=== PATIENT | male | born 1990 | race American Indian/Alaskan Native ===

== ENCOUNTER 2017-04-20 13:00 | Emergency (ER) | payer SELFPAY ==
[2017-04-20 13:17] VITALS: BP 109/74
[2017-04-20] MEDS ORDERED: TYLENOL PO ONE (13:59)
--- NOTE | 2017-04-20 13:59 | Emergency Department Report ---
ED Headache HPI - General Chief Complaint: Headache Stated Complaint: HEADACHE Time Seen by Provider: 04/20/17 13:56 - History of Present Illness Initial Comments: 26-year-old male past medical history asthma presents with complaint of right sided headache persistent and intermittent for one week. Denies fever chills nausea vomiting photophobia phonophobia. Denies any head trauma. No fever or chills reported. Patient is fully lucid awake alert and oriented 3. No alcohol or drug use or smoking reported. Patient is able to without assistance. Denies blurry vision dizziness and nausea. States it is right- sided throbbing and occurs 2-3 times per day slightly worse in the morning. Timing/Duration: 1 week Quality: moderate, achy, stabbing Head Injury Location: temporal Associated Symptoms: denies symptoms Allergies/Adverse Reactions: Allergies No Known Allergies Allergy (Unverified 06/08/15 10:09) Home Medications: Ambulatory Orders hydrOXYzine HCL [Atarax] 25 mg PO Q6HR PRN #20 tablet 06/08/15 predniSONE [Deltasone] 50 mg PO QDAY #5 tab 06/08/15 Ibuprofen [Motrin] 800 mg PO Q8HR PRN #25 tablet 04/20/17 Metoclopramide HCl [Reglan TAB] 5 mg PO TID PRN #9 tablet 04/20/17 ED Review of Systems ROS: Stated complaint: HEADACHE Other details as noted in HPI Constitutional: denies: chills, fever Eyes: denies: eye pain, eye discharge, vision change ENT: denies: ear pain, throat pain Respiratory: denies: cough, shortness of breath, wheezing Cardiovascular: denies: chest pain, palpitations Endocrine: no symptoms reported Gastrointestinal: denies: abdominal pain, nausea, diarrhea Genitourinary: denies: urgency, dysuria Musculoskeletal: denies: back pain, joint swelling, arthralgia Skin: denies: rash, lesions Neurological: headache. denies: weakness, paresthesias Psychiatric: denies: anxiety, depression Hematological/Lymphatic: denies: easy bleeding, easy bruising ED Past Medical Hx - Past Medical History Previous Medical History?: No - Surgical History Past Surgical History?: No - Social History Smoking Status: Current Every Day Smoker Substance Use Type: Alcohol, Marijuana - Medications Home Medications: Home Medications Medication Instructions Recorded Confirmed Last Taken Type hydrOXYzine HCL [Atarax] 25 mg PO Q6HR PRN #20 tablet 06/08/15 Unknown Rx predniSONE [Deltasone] 50 mg PO QDAY #5 tab 06/08/15 Unknown Rx Ibuprofen [Motrin] 800 mg PO Q8HR PRN #25 tablet 04/20/17 Unknown Rx Metoclopramide HCl [Reglan TAB] 5 mg PO TID PRN #9 tablet 04/20/17 Unknown Rx ED Physical Exam - General Limitations: No Limitations General appearance: alert, in no apparent distress - Head Head exam: Present: atraumatic, normocephalic - Eye Eye exam: Present: normal appearance, PERRL, EOMI - ENT ENT exam: Present: mucous membranes moist - Neck Neck exam: Present: normal inspection - Respiratory Respiratory exam: Present: normal lung sounds bilaterally. Absent: respiratory distress - Cardiovascular Cardiovascular Exam: Present: regular rate, normal rhythm. Absent: systolic murmur, diastolic murmur, rubs, gallop - GI/Abdominal GI/Abdominal exam: Present: soft, normal bowel sounds - Rectal Rectal exam: Present: deferred - Extremities Exam Extremities exam: Present: normal inspection - Back Exam Back exam: Present: normal inspection - Neurological Exam Neurological exam: Present: alert, oriented X3, CN II-XII intact, normal gait - Expanded Neurological Exam Expanded Patient oriented to: Present: person, place, time Cranial nerves: EOM's Intact: Normal, Facial Sensation: Normal Cerebellar function: Finger to Nose: Normal, Heel to Rodriguez: Normal, Romberg: Normal Sensory exam: Upper Extremity Light Touch: Normal, Lower Extremity Light Touch: Normal Motor strength exam: RUE: 5, LUE: 5, RLE: 5, LLE: 5 Best Eye Response (Mckenna): (4) open spontaneously Best Motor Response (Mckenna): (6) obeys commands Best Verbal Response ([place]): (5) oriented [place] Total: 15 - Psychiatric Psychiatric exam: Present: normal affect, normal mood - Skin Skin exam: Present: warm, dry, intact, normal color. Absent: rash ED Course Vital Signs 04/20/17 04/20/17 13:14 15:00 Temperature 98.5 F Pulse Rate 74 Respiratory 16 18 Rate Blood Pressure 109/74 [Left] O2 Sat by Pulse 99 Oximetry ED Medical Decision Making - Medical Decision Making A/P: Acute headache 1- CT unremarkable, Cranial nerves 2, 3, 4, 5, 6, 7, 8,10, 11, 12 intact on clinical exam, patient is fully lucid awake alert and oriented 3 conversant. Denies any upper or lower extremity paresthesias and has 5/5 strength in bilateral upper and lower extremities on clinical exam. 2- patient experienced significant relief of headache with one dose of Reglan and Tylenol 3- motrin when necessary, short course Reglan when necessary 4- follow-up with PMD Critical care attestation.: If time is entered above; I have spent that time in minutes in the direct care of this critically ill patient, excluding procedure time. ED Disposition Clinical Impression: Acute headache Qualifiers: Headache type: tension-type Intractability: not intractable Qualified Code(s): G44.209 - Tension-type headache, unspecified, not intractable Disposition: DC-01 TO HOME OR SELFCARE Is pt being admited?: No Does the pt Need Aspirin: No Condition: Stable Instructions: Migraine Headache (ED), Acute Headache (ED) Prescriptions: Ibuprofen [Motrin] 800 mg PO Q8HR PRN #25 tablet PRN Reason: Headache Metoclopramide HCl [Reglan TAB] 5 mg PO TID PRN #9 tablet PRN Reason: Headache Referrals: PRIMARY CARE, [Primary Care Provider] - 3-5 Days [facility] [Provider Group] - 3-5 Days Forms: Work/School Release Form(ED) Time of Disposition: 16:30
[2017-04-20] MEDS ORDERED: REGLAN IV ONE (14:00)
--- NOTE | 2017-04-20 16:21 | Cat Scan Report ---
FINAL REPORT PROCEDURE: CT HEAD/BRAIN WO CON TECHNIQUE: Computerized tomography of the head was performed without contrast material. HISTORY: headahce, right sided, intense COMPARISON: No prior studies are available for comparison. FINDINGS: Brain: Brain density appears normal. No evidence of intracranial hemorrhage. No parenchymal hemorrhage, mass lesions or mass effect are seen. No abnormal extraxial fluid collects or masses are seen. Ventricles: Ventricles are normal size and are midline. Bone Windows: No evidence of skull fracture. Minimal scalp hematoma seen left parietal region laterally posteriorly image 46 series 2 Paranasal sinuses: Visualized portions appear clear. Mastoid air cells: Visualized portions appear clear. IMPRESSION: Small scalp hematoma as described otherwise negative exam
== END 2017-04-20 16:45 | disposition home or self-care (01) ==
LOC: ED 13:00
DX: R51 Headache (principal); F17.200 Nicotine dependence, unspecified, uncomplicated; F12.10 Cannabis abuse, uncomplicated
CPT/HCPCS: 70450; 96374; 99283; J2765

== ENCOUNTER 2021-08-09 08:58 | Emergency (ER) | payer SELFPAY ==
[2021-08-09 09:08] VITALS: BP 123/77
== END 2021-08-09 11:30 | disposition left against medical advice (07) ==
LOC: ED 08:58
DX: R51.9 Headache, unspecified (principal); Z53.21 Procedure and treatment not carried out due to patient leaving prior to being seen by health care provider

== ENCOUNTER 2021-08-10 14:36 | Emergency (ER) | payer SELFPAY ==
[2021-08-10 14:43] VITALS: BP 130/83
== END 2021-08-10 21:00 | disposition left against medical advice (07) ==
LOC: ED 14:36
DX: R51.9 Headache, unspecified (principal); Z53.21 Procedure and treatment not carried out due to patient leaving prior to being seen by health care provider